=== PATIENT | female | born 1965 | race Two or more races ===

== ENCOUNTER 2023-08-29 12:20 | Outpatient (RCR) | payer OTHER, SELFPAY ==
--- NOTE | 2023-09-16 17:15 | MHC.SP.ADU ---
Referring provider: Janell Fernandez MD Reason for Referral: hoarseness, vocal nodules Type of Treatment: 25252 Evaluation of Speech Sound Production Date of Plan of Treatment: 08/29/23 Onset of Symptoms/Illness: 06/06/23 Date Treatment Started: 08/29/23 Medical Diagnosis: vocal nodules, hoarseness Primary Speech Language Diagnosis: R49.0 Dysphonia History Tracey is a 58 year old Uzbek speaking female referred for speech therapy by Janell Fernandez MD, with [facility] with diagnoses of hoarseness and vocal cord nodules. The ENT referral notes hyperfunction of the supraglottis with phonation and reports that overall findings were consistent with irritable larynx syndrome with inducible laryngeal obstruction. The ENT is recommending a followup in December 2023, hoping that voice therapy will have been completed by then. Tracey reportedly has a history vocal cord nodules that were previously treated with voice therapy. Tracey was seen for today?s evaluation on 08/29/2023 accompanied by her . The evaluation was completed by a bilingual Speech-Language Pathologist who spoke both Vincentian and Uzbek throughout visit. The family refused use of an field hockey coach and instead, Tracey?s supported with additional explanation when needed. Tracey?s history is notable for reflux and asthma in addition to prior vocal cord nodules as mentioned above. She reports that she takes Pepcid for reflux management and has an inhaler for asthma management. She reports that she ?coughs a lot? which she believes is secondary to her asthma and reflux diagnoses. Tracey reports that she currently sees Dr. Osman for pulmonology. rTacey reports the hoarseness and moments as what bothers her most about her voice. She reports she gets particularly hoarse when she sings and sometimes feels like she is ?choking? when trying to sing in [employer]. In addition to voice concerns, Tracey reports concerns for swallowing and cognition. Tracey reports difficulty swallowing starting approximately a month after getting COVID, around April 2022. She reports no pain, but rather that she is only able to eat ?little by little.? Tracey reports that she forgets things a lot of the time, including important daily activities like taking medications. Medical History: Acid Reflux Arthritis Asthma Hearing Loss Stroke Thyroid Issues Vocal Polyps/Nodules Voice Changes Other: See below Other: Anxiety/Depression, Panic Attacks, Migraines Respiratory Needs: Room Air Social History: Employment Status: Unemployed Assistive Devices in use: Hearing Aids Past Speech Language Therapy: Seen for voice therapy 2x in past d/t vocal nodules Swallowing History: Dysphagia Specific: Other Comments: Patient reports difficulty swallowing that started around 2021, recommend further testing Pre-eval Risk for Aspiration: Weak Voice Reported Speech, Language, Cognition difficulties: Understanding Attention Memory Cognition Voice Swallowing Assessment Informal Voice Assessment: Voice Loudness: Moderately Soft/Quiet Voice Phonatory-based Quality: Hoarse RESULTS: Tracey?s vocal quality as well as her perception of her voice was analyzed during today?s evaluation through measures including patient interview, questionnaires, conversation samples, and vocal exercises. Vocal Hygiene Interview In an interview regarding vocal hygiene, Tracey reported the following: -No alcohol or smoking -3 servings of caffeine per day (2 coffee, 1 soda) -<1 glass of water per day; ?a couple of sips? -Difficulty sleeping; requiring medicine -Frequent yelling/screaming, coughing, loud talking, and talking for long periods of time -Occasional throat clearing and talking in noisy environments -No change in vocal quality noticed throughout various times of day -Sometimes gets a pain in throat the more she talks Voice Handicap Index (VHI) The VHI is a questionnaire in which an individual answers questions regarding functional, emotional, and physical components of their voice to provide insight into their perception of their own voice. Functional questions provide insight into the impact of their voice on daily activities; i.e. ?I speak with friends, neighbors, or relatives less often because of my voice.? Emotional questions provide insight into the individual?s feelings regarding their voice; i.e. ?My voice problem upsets me.? Physical questions provide insight into the individual?s physical discomfort and characteristics of voice; i.e. ?I use a great deal of effort to speak.? Responses to questions include never, almost never, sometimes, almost always, and always. Tracey?s Z-score value was computed to be +2.29. A score of +2.00 to +2.99 is interpreted as ?moderate significant impact on aspects of daily life.? Her physical symptoms score was the highest, followed by emotional, followed by functional; suggesting that her voice has the greatest emotional impact in Tracey?s daily life. S:Z Ratio The S:Z Ratio is not diagnostic of laryngeal pathology: it is merely a measurement of one?s ability to sustain the voiceless sound [S] in comparison to sustaining the voiced sound [Z] cognate. For the majority of people with no difficulties affecting their vocal folds are typically able to sustain both the voiceless [S] and voiced [Z] sounds for approximately the same length of time during the S:Z task, thus producing a 1:1 ratio. 95% of people who have some difficulty affecting the movement or vibration of their vocal folds have an S:Z ratio of greater than 1.40. Conversely, a S:Z ratio of less than 1.0 suggests functional dysphonia in the absence of laryngeal pathology (Massiel & Ever, 1981). Across three trials, Tracey produced the following on the S:Z prolongation averages: S = 5.51 seconds Z = 5.5 seconds Ratio: 1.00 Norms: Mean S= 17.7 seconds (Standard deviation = 7.6 seconds); Mean Z=18.6 seconds (Standard deviation = 7.0 seconds) (Massiel & Ever 1981 in Jimmie et. al. 1987) Tracey?s S:Z ratio is deemed to be within normal limits. However, the length of her [S] and [Z] sounds are shorter than normative data of mixed ages and genders. Notably, Tracey had a hard time to phonate the voiced /z/ sound. Maximum Phonation Time (MPT): [a] prolongation: range: 7.60-11.02 seconds, mean = 9.14seconds When prompted to produce a prolonged ?AHH? ([a] prolongation), Tracey presented with moderate-severely low volume and several moments of strained vocal quality. Compared to normative data of adult females, Tracey?s maximum phonation time of [a] (?AHH?) is nearly 3X less. Tracey produced a maximum phonation time of 9.14 seconds as compared to the average time of 25.7 seconds (Jimmie et. al., 1987). Impressions and Recommendations Summary: Tracey presents with a severely hoarse voice during today?s evaluation and shortened phonation length across tasks. Tracey?s prolongations of various sounds are shorter as compared to normative data; this may be due to a decrease in respiratory efficiency. It is recommended that Tracey attend voice therapy to target vocal hygiene education and respiration efficiency. It is also recommended that Tracey participate in further testing for cognition and dysphagia. Impact on Daily Function/Activity Limitations: Daily Activities: Moderate Interpersonal Interactions: Moderate Community: Moderate Prognosis for Improvement: Good Recommendation for Speech Therapy: Outpatient Speech Therapy Frequency/Duration: 1x/week for 6-12 sessions Goals: -Tracey will independently recall 3+ environmental modifications to improve vocal hygiene. -When given a scenario, Tracey will independently discriminate between healthy vocal use and vocal misuse/abuse with 80% accuracy -Tracey will sustain vowel prolongation for 15 seconds in 80% of opportunities -Tracey will accurately demonstrate diaphragmatic breathing in 100% of trials with moderate cueing. Patient Education: Completed: Yes Patient/Caregiver Education: Described Results of Evaluation Patient expressed understanding of evaluation Patient agrees with goals and treatment plan Family/Caregivers expressed understanding of results Family/Caregivers expressed agreement with goals and treatment plan Director Phone Clinican/Clinical Fellow: No Supervisory Statement: N/A Speech Language Pathologist: Janell Calero M.A., CCC-PLUMBER'S ASSISTANT
--- NOTE | 2023-09-29 16:52 | MHC.SP.ADU ---
Referring provider: Janell Fernandez MD Reason for Referral: hoarseness, vocal nodules Type of Treatment: 01051 Behavioral and Qualitative Analysis of Voice and Resonance Date of Plan of Treatment: 08/29/23 Onset of Symptoms/Illness: 06/06/23 Date Treatment Started: 08/29/23 Medical Diagnosis: vocal nodules, hoarseness Primary Speech Language Diagnosis: R49.0 Dysphonia History Tracey is a 58 year old [place] speaking female referred for speech therapy by Janell Fernandez MD, with [facility] with diagnoses of hoarseness and vocal cord nodules. The ENT referral notes hyperfunction of the supraglottis with phonation and reports that overall findings were consistent with irritable larynx syndrome with inducible laryngeal obstruction. The ENT is recommending a followup in December 2023, hoping that voice therapy will have been completed by then. Tracey reportedly has a history vocal cord nodules that were previously treated with voice therapy. Tracey was seen for today?s evaluation on 08/29/2023 accompanied by her . The evaluation was completed by a bilingual Speech-Language Pathologist who spoke both Mohawk and [place] throughout visit. The family refused use of an craniologist and instead, Tracey?s supported with additional explanation when needed. Tracey?s history is notable for reflux and asthma in addition to prior vocal cord nodules as mentioned above. She reports that she takes Pepcid for reflux management and has an inhaler for asthma management. She reports that she ?coughs a lot? which she believes is secondary to her asthma and reflux diagnoses. Tracey reports that she currently sees Dr. Osman for pulmonology. Tracey reports the hoarseness and moments as what bothers her most about her voice. She reports she gets particularly hoarse when she sings and sometimes feels like she is ?choking? when trying to sing in [employer]. In addition to voice concerns, Tracey reports concerns for swallowing and cognition. Tracey reports difficulty swallowing starting approximately a month after getting COVID, around April 2022. She reports no pain, but rather that she is only able to eat ?little by little.? Tracey reports that she forgets things a lot of the time, including important daily activities like taking medications. Medical History: Acid Reflux Arthritis Asthma Hearing Loss Stroke Thyroid Issues Vocal Polyps/Nodules Voice Changes Other: See below Other: Anxiety/Depression, Panic Attacks, Migraines Respiratory Needs: Room Air Social History: Employment Status: Unemployed Assistive Devices in use: Hearing Aids Past Speech Language Therapy: Seen for voice therapy 2x in past d/t vocal nodules Swallowing History: Dysphagia Specific: Other Comments: Patient reports difficulty swallowing that started around 2021, recommend further testing Pre-eval Risk for Aspiration: Weak Voice Reported Speech, Language, Cognition difficulties: Understanding Attention Memory Cognition Voice Swallowing Assessment Informal Voice Assessment: Voice Loudness: Moderately Soft/Quiet Voice Phonatory-based Quality: Hoarse RESULTS: Tracey?s vocal quality as well as her perception of her voice was analyzed during today?s evaluation through measures including patient interview, questionnaires, conversation samples, and vocal exercises. Vocal Hygiene Interview In an interview regarding vocal hygiene, Traecy reported the following: -No alcohol or smoking -3 servings of caffeine per day (2 coffee, 1 soda) -<1 glass of water per day; ?a couple of sips? -Difficulty sleeping; requiring medicine -Frequent yelling/screaming, coughing, loud talking, and talking for long periods of time -Occasional throat clearing and talking in noisy environments -No change in vocal quality noticed throughout various times of day -Sometimes gets a pain in throat the more she talks Voice Handicap Index (VHI) The VHI is a questionnaire in which an individual answers questions regarding functional, emotional, and physical components of their voice to provide insight into their perception of their own voice. Functional questions provide insight into the impact of their voice on daily activities; i.e. ?I speak with friends, neighbors, or relatives less often because of my voice.? Emotional questions provide insight into the individual?s feelings regarding their voice; i.e. ?My voice problem upsets me.? Physical questions provide insight into the individual?s physical discomfort and characteristics of voice; i.e. ?I use a great deal of effort to speak.? Responses to questions include never, almost never, sometimes, almost always, and always. Tracey?s Z-score value was computed to be +2.29. A score of +2.00 to +2.99 is interpreted as ?moderate significant impact on aspects of daily life.? Her physical symptoms score was the highest, followed by emotional, followed by functional; suggesting that her voice has the greatest emotional impact in Tracey?s daily life. S:Z Ratio The S:Z Ratio is not diagnostic of laryngeal pathology: it is merely a measurement of one?s ability to sustain the voiceless sound [S] in comparison to sustaining the voiced sound [Z] cognate. For the majority of people with no difficulties affecting their vocal folds are typically able to sustain both the voiceless [S] and voiced [Z] sounds for approximately the same length of time during the S:Z task, thus producing a 1:1 ratio. 95% of people who have some difficulty affecting the movement or vibration of their vocal folds have an S:Z ratio of greater than 1.40. Conversely, a S:Z ratio of less than 1.0 suggests functional dysphonia in the absence of laryngeal pathology (Massiel & Ever, 1981). Across three trials, Tracey produced the following on the S:Z prolongation averages: S = 5.51 seconds Z = 5.5 seconds Ratio: 1.00 Norms: Mean S= 17.7 seconds (Standard deviation = 7.6 seconds); Mean Z=18.6 seconds (Standard deviation = 7.0 seconds) (Massiel & Ever 1981 in Jimmie et. al. 1987) Tracey?s S:Z ratio is deemed to be within normal limits. However, the length of her [S] and [Z] sounds are shorter than normative data of mixed ages and genders. Notably, Tracey had a hard time to phonate the voiced /z/ sound. Maximum Phonation Time (MPT): [a] prolongation: range: 7.60-11.02 seconds, mean = 9.14seconds When prompted to produce a prolonged ?AHH? ([a] prolongation), Tracey presented with moderate-severely low volume and several moments of strained vocal quality. Compared to normative data of adult females, Tracey?s maximum phonation time of [a] (?AHH?) is nearly 3X less. Tracey produced a maximum phonation time of 9.14 seconds as compared to the average time of 25.7 seconds (Jimmie et. al., 1987). Impressions and Recommendations Summary: Tracey presents with a severely hoarse voice during today?s evaluation and shortened phonation length across tasks. Tracey?s prolongations of various sounds are shorter as compared to normative data; this may be due to a decrease in respiratory efficiency. It is recommended that Tracey attend voice therapy to target vocal hygiene education and respiration efficiency. It is also recommended that Tracey participate in further testing for cognition and dysphagia. Impact on Daily Function/Activity Limitations: Daily Activities: Moderate Interpersonal Interactions: Moderate Community: Moderate Prognosis for Improvement: Good Recommendation for Speech Therapy: Outpatient Speech Therapy Frequency/Duration: 1x/week for 6-12 sessions Goals: -Tracey will independently recall 3+ environmental modifications to improve vocal hygiene. -When given a scenario, Tracey will independently discriminate between healthy vocal use and vocal misuse/abuse with 80% accuracy -Tracey will sustain vowel prolongation for 15 seconds in 80% of opportunities -Tracey will accurately demonstrate diaphragmatic breathing in 100% of trials with moderate cueing. Patient Education: Completed: Yes Patient/Caregiver Education: Described Results of Evaluation Patient expressed understanding of evaluation Patient agrees with goals and treatment plan Family/Caregivers expressed understanding of results Family/Caregivers expressed agreement with goals and treatment plan [employer] Clinican/Clinical Fellow: No Supervisory Statement: N/A Speech Language Pathologist: Janell Calero M.A., CCC-INSIDE SALES ASSISTANT
== END 2023-10-05 15:52 | disposition still patient (30) ==
LOC: HO.SH 12:20
PROVIDERS: PCP Internal Medicine; Visit Provider Otolaryngology
DX: R49.0 Dysphonia (principal); J38.2 Nodules of vocal cords
CPT/HCPCS: 92522; 92524

== ENCOUNTER 2024-01-20 15:00 | Outpatient (RCR) | payer OTHER, SELFPAY | END 2024-07-04 13:58 | disposition home or self-care (01) | LOC: HO.SH 15:00 | PROVIDERS: PCP Internal Medicine; Visit Provider Otolaryngology | DX: R49.0 Dysphonia (principal) | CPT/HCPCS: 92507 ==